=== PATIENT | female | born 1985 | race African-American/Black ===

== ENCOUNTER 2016-09-30 07:54 | Emergency (ER) | payer BC ==
[~2016-09-30] VITALS: Ht 165.1 cm; Wt 63.5 kg
--- NOTE | 2016-09-30 08:10 | NUR ---
PT CAME IN FOR CHEST PAIN RADIATING TO LEFT ARM AND JAW X 1 HOUR. VSS. SAFETY AND COMFORT MEASURES PROVIDED. WILL MONITOR.
[2016-09-30] MEDS ORDERED: ASPIRIN 81 MG TAB.CHEW PO ONE (08:30)
[2016-09-30] MEDS ORDERED: ASPIRIN 81 MG TAB.CHEW ONE (08:32)
[2016-09-30 08:48] LABS: BASOPHILS % (AUTO) 0.6 % (0.0-2.0); EOSINOPHILS # (AUTO) 0.1 /CMM (0.0-0.7); EOSINOPHILS % (AUTO) 1.9 % (0.0-6.0); HEMATOCRIT 39 % (33-45); LYMPHOCYTES # (AUTO) 2.1 /CMM (0.8-4.8); LYMPHOCYTES % (AUTO) 51.5 % (20.0-44.0); MEAN CORPUSCULAR HEMOGLOBIN 28 PG (26.0-33.0); MEAN CORPUSCULAR HGB CONC 33 g/dl (31.0-36.0); MEAN CORPUSCULAR VOLUME 85 fL (82-100); MONOCYTES # (AUTO) 0.4 /CMM (0.1-1.30); MONOCYTES % (AUTO) 10.1 % (2.0-12.0); NEUTROPHILS # (AUTO) 1.5 /CMM (1.8-8.9); NEUTROPHILS % (AUTO) 35.9 % (43.0-81.0); PLATELET COUNT (AUTO) 213 /CMM (150-450); RDW COEFFICIENT OF VARIATION 13.9 (11.5-15.0); RED BLOOD CELL COUNT(AUTO) 4.57 MIL/uL (4.0-5.2); WHITE BLOOD COUNT (AUTO) 4.1 K/uL (4.3-11.0)
[2016-09-30 08:57] LABS: CALCIUM, SERUM 8.9 mg/dL (8.5-10.1); CARBON DIOXIDE 28 mmol/L (21-32); CHLORIDE 104 mmol/L (98-107); CREATININE 0.9 mg/dL (0.6-1.3); GLUCOSE 89 mg/dL (74-106); POTASSIUM 3.7 mmol/L (3.5-5.1); SODIUM SERUM 139 mmol/L (136-145); UREA NITROGEN, BLOOD 10 mg/dL (7-18)
[2016-09-30 09:04] LABS: INR 0.94 (0.87-1.13)
[2016-09-30 09:06] LABS: TROPONIN I < 0.017 ng/mL (0.00-0.056)
--- NOTE | 2016-09-30 10:00 | NUR ---
PT UNABLE TO GIVE URINE SAMPLE AT THIS TIME.
--- NOTE | 2016-09-30 11:47 | NUR ---
EKG DONE AT BS.
--- NOTE | 2016-09-30 12:42 | NUR ---
CALLED FOR FOOD TRAY
--- NOTE | 2016-09-30 12:58 | NUR ---
Patient discharged to home in stable condition. Written and verbal after care instructions given. Patient verbalizes understanding of instruction.
[2016-09-30 12:59] VITALS: BP 109/65
--- NOTE | 2016-09-30 12:59 | NUR ---
IV removed. Catheter intact and site benign. Pressure and 4x4 applied to site. No bleeding noted.
== END 2016-09-30 13:02 | disposition home or self-care (01) ==
LOC: ER 07:56
DX: R07.2 Precordial pain (principal); F17.200 Nicotine dependence, unspecified, uncomplicated; J45.909 Unspecified asthma, uncomplicated; R79.1 Abnormal coagulation profile; Z88.0 Allergy status to penicillin; Z88.1 Allergy status to other antibiotic agents
CPT/HCPCS: 36415; 71010-TC; 80048-TC; 84484-TC; 84703-TC; 85025-TC; 85730-TC; A4606; Z7610

== ENCOUNTER 2021-04-27 12:57 | Emergency (ER) | payer BC, OTHER ==
[~2021-04-27] VITALS: Ht 165.1 cm; Wt 72.6 kg
[2021-04-27 13:31] VITALS: BP 116/79
--- NOTE | 2021-04-27 13:38 | NUR ---
FACUNDO HERMOSILLO AT BEDSIDE FOR WOUND CLEANING.
--- NOTE | 2021-04-27 14:29 | NUR ---
PT SIGNED WAIVER AND AGREED TO RECEIVED TORADOL AND TDAP IM.
--- NOTE | 2021-04-27 14:40 | NUR ---
SEEN AND EXAMINED BY .
[2021-04-27] MEDS ORDERED: LIDOCAINE 1%-EPI 1:100,000 20 ML VIAL ONE (14:44)
[2021-04-27] MEDS ORDERED: TDAP [DIPH/PERTUSSIS/TET] 0.5 ML VIAL IM ONE ×2 (14:44→15:00)
[2021-04-27] MEDS ORDERED: KETOROLAC TROMETHAMINE INJ 30 MG/ML VIAL ONE (14:44)
--- NOTE | 2021-04-27 14:48 | NUR ---
MILL OILER AT BEDSIDE FOR XRAY.
[2021-04-27] MEDS ORDERED: KETOROLAC TROMETHAMINE INJ 30 MG/ML VIAL IM ONE (15:00)
[2021-04-27] MEDS ORDERED: LIDOCAINE 1%-EPI 1:100,000 20 ML VIAL TP ONE (15:00)
--- NOTE | 2021-04-27 15:02 | NUR ---
SUTURING DONE BY .
[2021-04-27] MEDS ORDERED: CLIN150C16 PO (16:38)
--- NOTE | 2021-04-27 16:41 | NUR ---
FACUNDO HERMOSILLO AT BEDSIDE FOR WOUND DRESSING.
--- NOTE | 2021-04-27 16:42 | NUR ---
Patient discharged to home in stable condition. Written and verbal after care instructions given. Patient verbalizes understanding of instruction.
== END 2021-04-27 16:48 | disposition home or self-care (01) ==
LOC: ER 12:58
DX: S91.312A Laceration without foreign body, left foot, initial encounter (principal); J45.909 Unspecified asthma, uncomplicated; Z86.2 Personal history of diseases of the blood and blood-forming organs and certain disorders involving the immune mechanism; Z88.0 Allergy status to penicillin; Z88.1 Allergy status to other antibiotic agents; Z79.899 Other long term (current) drug therapy; W04.XXXA Fall while being carried or supported by other persons, initial encounter; Y93.89 Activity, other specified; Y92.89 Other specified places as the place of occurrence of the external cause; Y99.8 Other external cause status
CPT/HCPCS: 12001; 73630; 90471; 90715; 96372; 99284; A6403; J1885; J3490